=== PATIENT | female | born 1990 | race Hispanic/Latino ===

== ENCOUNTER 2017-10-10 14:52 | Emergency (ER) | payer OTHER ==
[2017-10-10 15:09] VITALS: BP 122/72; PULSE 82; RESP 16; TEMP 98.8; O2SAT 100
--- NOTE | 2017-10-10 15:46 | ED PDOC ---
HPI: Abdomen Time Seen by Provider: 10/10/17 15:26 Chief Complaint (Nursing): Abdominal Pain Chief Complaint (Provider): Abdominal Pain History Per: Patient History/Exam Limitations: no limitations Onset/Duration Of Symptoms: Days, Other (x 1 week) Current Symptoms Are (Timing): Intermittent Episodes Additional Complaint(s): Ms. Ash is a 27 year old female (G-2/P-0) who presents to the ED complaining of intermittent lower abdominal pain (mostly midline suprapubic area) x 1 week. Patient is concern about being . LMP was on Sep 09. Patient states she took 2 tests at home and states 1 tested (+) and the other tested (-). Patient went to [facility] where she also did 2 tests. Patient reports 1 tested (+) and the other tested (-). Patient was sent here for more in depth evaluation. Denies dysuria, fever, nausea or vomiting. Patient states 1st ended up as an . PMD: No Family Provider Past Medical History Vital Signs: Last Vital Signs Temp 98.8 F 10/10/17 15:06 Pulse 82 10/10/17 15:06 Resp 16 10/10/17 15:06 BP 122/72 10/10/17 15:06 Pulse Ox 100 10/10/17 16:31 - Family History Family History: States: No Known Family Hx - Social History Current smoker - smoking cessation education provided: No Alcohol: Social Drugs: Denies - Allergies Allergies/Adverse Reactions: Allergies Allergy/AdvReac Type Severity Reaction Status Date / Time No Known Allergies Allergy Verified 10/10/17 15:05 Review of Systems ROS Statement: Except As Marked, All Systems Reviewed And Found Negative Constitutional: Negative for: Fever Gastrointestinal: Positive for: Abdominal Pain (Lower). Negative for: Nausea, Vomiting Genitourinary Female: Negative for: Dysuria, Hematuria Physical Exam - Reviewed Nursing Documentation Reviewed: Yes Vital Signs Reviewed: Yes - Physical Exam Appears: Positive for: Well, Non-toxic, No Acute Distress Head Exam: Positive for: ATRAUMATIC, NORMAL INSPECTION, NORMOCEPHALIC Skin: Positive for: Normal Color, Warm, Dry Eye Exam: Positive for: Normal appearance, EOMI, PERRL ENT: Positive for: Normal ENT Inspection Neck: Positive for: Normal, Painless ROM, Supple Cardiovascular/Chest: Positive for: Regular Rate, Rhythm. Negative for: Murmur Respiratory: Positive for: Normal Breath Sounds. Negative for: Accessory Muscle Use, Respiratory Distress Gastrointestinal/Abdominal: Positive for: Tenderness (Mild suprapubic tenderness ). Negative for: Normal Exam Back: Positive for: Normal Inspection Extremity: Positive for: Normal ROM (Full). Negative for: Pedal Edema, Deformity Neurologic/Psych: Positive for: Alert, linotype mechanic II-XII, Oriented (x 3). Negative for : Motor/Sensory Deficits - Laboratory Results Result Diagrams: 10/10/17 15:55 Urine POC: Positive - ECG O2 Sat by Pulse Oximetry: 100 (RA) Pulse Ox Interpretation: Normal Medical Decision Making Medical Decision Making: Time: 15:30 Impression(s): Lower abdominal pain r/o Plan: - Type and Screen Stat - Beta-hCG, Quantitative Stat - ED Urine - ED Urine Dipstick - CBC - Transvaginal Ultrasound Beta hCG, Quantiative 585.06 mIU/mL Scribe Attestation: Documented by Elias Ledesma, acting as a scribe for Sujatha Fairbanks MD Provider Scribe Attestation: All medical record entries made by the Scribe were at my direction and personally dictated by me. I have reviewed the chart and agree that the record accurately reflects my personal performance of the history, physical exam, medical decision making, and the department course for this patient. I have also personally directed, reviewed, and agree with the discharge instructions and disposition. preliminary US findings reviewed with patient in the context of the b-hcg level. Patient will followup with her manager interface Disposition - Clinical Impression Clinical Impression: - Patient ED Disposition Is Patient to be Admitted: No Doctor Will See Patient In The: Office Counseled Patient/Family Regarding: Diagnosis, Need For Followup - Disposition Referrals: [facility] [Outside] Disposition: Routine/Home Disposition Time: 18:02 Condition: STABLE Instructions: Tests Forms: [employer] (Malay)
[2017-10-10 16:01] LABS: HEMOGLOBIN 13.3 g/dL (12.0-16.0); MEAN CELL VOLUME 87.4 fl (81.0-99.0); MEAN CORPUSCULAR HEMOGLOBIN 29.3 pg (27.0-31.0); MEAN CORPUSCULAR HGB CONC 33.5 g/dL (33.0-37.0); RBC 4.56 Mil/uL (3.80-5.20); RED CELL DISTRIBUTION WIDTH 14.3 % (11.5-14.5); WHITE BLOOD COUNT 7.2 K/uL (4.8-10.8)
[2017-10-10 16:21] LABS: SQUAMOUS EPITHIAL 8 /hpf (0-5); URINE BACTERIA RARE (<OCC); URINE BILIRUBIN NEGATIVE (NEGATIVE); URINE BLOOD NEGATIVE (NEGATIVE); URINE CLARITY SLIGHTY-CLOUDY (Clear); URINE COLOR YELLOW (YELLOW); URINE GLUCOSE (UA) NEG (Normal); URINE LEUKOCYTE ESTERASE SMALL Leu/uL (Negative); URINE PROTEIN NEGATIVE (NEGATIVE); URINE UROBILINOGEN 0.2-1.0 mg/dL (0.2-1.0)
--- NOTE | 2017-10-11 10:25 | US ---
Indication: pelvic pain, positive urine preg Comparison: None available. Technique: Transvaginal pelvic ultrasound Findings: The uterus measures approximately 8.1 x 4.5 x 5.1 cm. Anteverted. Endometrial thickness measures approximately 1.4 cm. No evidence of intrauterine gestational sac. The right ovary measures 3.3 x 1.5 x 2.1 cm. The left ovary measures 3.4 x 2.1 x 2.3 cm. Blood flow was demonstrated to both ovaries. Small pelvic free fluid. Impression: No evidence of intrauterine gestational sac. If indeed the patient is based on serum beta HCG values, the sonographic findings represent either: Very early IUP; embryonic demise; ectopic gestation. Follow-up with serial quantitative serum beta HCG measurements and post OBGYN follow-up as clinically indicated, since ectopic gestation cannot be excluded based only on sonographic findings. Small pelvic free fluid. Preliminary impression was provided by virtual radiologic.
== END 2017-10-10 18:44 | disposition home or self-care (01) ==
LOC: H.ER 14:52
DX: O26.90 Pregnancy related conditions, unspecified, unspecified trimester (principal); Z3A.00 Weeks of gestation of pregnancy not specified